=== PATIENT | female | born 1995 | race Hispanic/Latino ===

== ENCOUNTER 2021-01-05 11:30 | Emergency (ER) | payer OTHER ==
[~2021-01-05] VITALS: Ht 154.9 cm; Wt 43.1 kg
[2021-01-05] MEDS ORDERED: TETANUS/DIPHTHERIA TOXOID [ADULT] 0.5 ML VIAL IM SCH (12:21)
[2021-01-05] MEDS ORDERED: ACETAMINOPHEN 325 MG TAB ONE (12:32)
[2021-01-05] MEDS ORDERED: OCTYL 2-CYANOACRYLATE 1 EACH TP ONE (12:32)
[2021-01-05] MEDS ORDERED: CEPH500B PO (12:40)
[2021-01-05] MEDS ORDERED: ACET-2247 PO (12:40)
[2021-01-05] MEDS: CEPHALEXIN 500 MG CAPSULE PO SCH ×2 (12:44→12:45)
[2021-01-05] MEDS ORDERED: ACETAMINOPHEN 500 MG TABLET PO SCH (13:00)
== END 2021-01-05 13:05 | disposition home or self-care (01) ==
LOC: EDH 11:30
DX: S61.210A Laceration without foreign body of right index finger without damage to nail, initial encounter (principal); Z79.899 Other long term (current) drug therapy; X58.XXXA Exposure to other specified factors, initial encounter; Y93.89 Activity, other specified; Y92.89 Other specified places as the place of occurrence of the external cause; Y99.8 Other external cause status
CPT/HCPCS: 12001; 73140; 90471; 90714